=== PATIENT | female | born 1965 | race Caucasian/White ===

== ENCOUNTER → 2016-05-28 | Outpatient (CLI) | payer OTHER ==
[~2016-05-28] VITALS: Ht 157.5 cm; Wt 71.4 kg
[~2016-05-28] MED LIST: AMITRIPTYLINE H25 M2 PO; CATAPRES-TTS 10.1 MG TD; CLONIDINE0.1 PO; FLEXERIL PO; FORTEO750 MCG/3 SUBQ; LISINOPRIL20 MG PO; NEURONTIN 300300 M1 PO; PERCOCET 5-3251 EACH PO; PROZAC40 MG PO; VITAMIN D35000 UNIT PO
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
[2016-05-28 11:41] VITALS: BP 141/101
== END | disposition home or self-care (01) ==
LOC: PAIN 05-18 06:50
DX: G90.522 Complex regional pain syndrome I of left lower limb (principal); M81.0 Age-related osteoporosis without current pathological fracture; F32.9 Major depressive disorder, single episode, unspecified; I10 Essential (primary) hypertension; Z98.890 Other specified postprocedural states; Z90.49 Acquired absence of other specified parts of digestive tract; Z90.710 Acquired absence of both cervix and uterus; Z98.42 Cataract extraction status, left eye; Z98.41 Cataract extraction status, right eye; Z96.1 Presence of intraocular lens

== ENCOUNTER → 2016-06-04 | Outpatient (CLI) | payer OTHER ==
[~2016-06-04] VITALS: Ht 154.9 cm; Wt 70.8 kg
--- NOTE | ~2016-06-04 | HPC ---
[facility] [place] [address] PAIN MANAGEMENT CONSULTATION Name: HAI NEWTON Room #: REG GABBY Hoyos.#: [id number] Admission: 06/04/16 Attend Phys: Justen Soler MD Discharge: Date of : 65 Report #: [id number] THIS REPORT FOR: //name// CC: ROSAURA Muse MD DATE OF SERVICE: 06/04/2016 CHIEF COMPLAINT: Pain in the left foot. FOLLOWUP HISTORY: The patient is a 51-year-old female who has been seen in the pain clinic because of chronic regional pain syndrome involving the left ankle and foot. She returns today for therapeutic evaluation/treatment for the pain in her right foot. She notes that use of the Catapres patch on the affected ankle has improved the blood flow. She continues to wear her boot. Temperatures in the foot prior to the procedure are 80.6 with the left foot, 84.6 degrees for the right foot. Fluoro time was 42 seconds. The patient elects to proceed with procedure. PROCEDURE NOTE: The patient was placed in the prone position. Fluoroscopy was used to identify the L1-L2 interspace. After appropriate prep with Betadine, a 25-gauge needle was used to numb the left side. A 22-gauge Chiba was then advanced under fluoroscopic guidance to the appropriate placement along the left paraspinous area. Aspiration did not refill any heme or fluid. Contrast solution was then injected. Spread of the contrast was noted. A total of 20 mL of 0.25% bupivacaine was slowly administrated over about 5 minutes. The patient had no symptomatic complaints. She then was taken to the recovery area. Left foot temperature increased from 80.6-85.8 degrees. Right foot temperature 85.4. The patient had no complications. She will be given gabapentin 300 mg 1 p.o. b.i.d. for the first couple of days, then increase to 300 mg p.o. b.i.d. for the first few days and then increase to 300 mg t.i.d. if she is able to tolerate this. She will follow up in the near future. We will consider evaluation at the next visit and the possibility of another lumbar sympathetic block to help the patient improve her pain control and improve function in her left foot. We would like to thank you for letting us to participate in her care. We hope she continues to improve. <ELECTRONICALLY SIGNED> By: Justen Soler MD 06/29/16 1018 1513 02 Justen Soler MD /nt
[2016-06-04 12:38] VITALS: BP 153/103
== END ==
LOC: PAIN 07:09
DX: G89.4 Chronic pain syndrome (principal)

== ENCOUNTER → 2016-06-18 | Outpatient (CLI) | payer OTHER ==
[~2016-06-18] VITALS: Ht 154.9 cm; Wt 73.9 kg
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
[2016-06-18 10:31] VITALS: BP 126/90
== END | disposition home or self-care (01) ==
LOC: PAIN 07:00
DX: G90.522 Complex regional pain syndrome I of left lower limb (principal)

== ENCOUNTER → 2017-01-12 | Outpatient (CLI) | payer OTHER ==
[~2017-01-12] VITALS: Ht 154.9 cm; Wt 76.8 kg
[~2017-01-12] MED LIST changes: +TRAMADOL 50 MG50 MG PO
[2017-01-12 09:26] VITALS: BP 156/81
== END ==
LOC: PAIN 07:08
DX: M25.572 Pain in left ankle and joints of left foot (principal)

== ENCOUNTER → 2017-08-03 | Outpatient (CLI) | payer OTHER ==
[~2017-08-03] VITALS: Ht 154.9 cm; Wt 77.9 kg
[~2017-08-03] MED LIST changes: +ALEVE220 MG PO; +CATAPRES-TTS 11 EACH TRANSDERM; +MOBIC7.5 MG PO
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
[2017-08-03 10:04] VITALS: BP 165/90
== END ==
LOC: PAIN 07:07
DX: M25.562 Pain in left knee (principal); G90.522 Complex regional pain syndrome I of left lower limb